=== PATIENT | female | born 1975 | race Caucasian/White ===

== ENCOUNTER 2016-12-04 09:18 | Emergency (ER) | payer MEDICARE, OTHER ==
[~2016-12-04] VITALS: Wt 57.5 kg
[~2016-12-04 09:18] MED LIST: LEVO125T PO
[2016-12-04] MEDS ORDERED: SOD CHLORIDE 0.9% 1,000 ML IV STA (09:35)
[2016-12-04] MEDS ORDERED: PARO20TA58 (09:56)
[2016-12-04] MEDS ORDERED: BISACODYL 10 MG SUPP PR ONE (10:00)
[2016-12-04] MEDS ORDERED: LACTULOSE 30ML CUP PO ONE (10:00)
[2016-12-04 10:25] LABS: BASOPHIL # 0.1 10^3/ul (0.0-0.1); EOSINOPHILS # 0.2 10^3/ul (0.0-0.5); EOSINOPHILS % 4.7 % (0.0-7.0); HEMATOCRIT 38.2 % (37.0-47.0); HEMOGLOBIN 12.2 g/dl (12.0-16.0); LYMPHOCYTES # 1.5 10^3/ul (0.8-2.9); LYMPHOCYTES % 28.8 % (15.0-51.0); MEAN CORPUSCULAR HEMOGLOBIN 28.9 pg (29.0-33.0); MEAN CORPUSCULAR HGB CONC 31.9 g/dl (32.0-37.0); MEAN CORPUSCULAR VOLUME 90.5 fl (82.0-101.0); MEAN PLATELET VOLUME 11.7 fl (7.4-10.4); MONOCYTE # 0.5 10^3/ul (0.3-0.9); MONOCYTES % 9.7 % (0.0-11.0); NEUTROPHILS % 55.6 % (39.0-77.0); PLATELET COUNT 192 10^3/UL (140-415); RED BLOOD COUNT 4.22 10^6/ul (4.20-5.40); RED CELL DISTRIBUTION WIDTH 12.3 % (11.5-14.5); WHITE BLOOD COUNT 5.1 10^3/ul (4.8-10.8)
[2016-12-04] MEDS ORDERED: LEVO88TA PO (10:32)
[2016-12-04 10:48] LABS: ALBUMIN 3.8 g/dl (3.3-4.9); ALBUMIN/GLOBULIN RATIO 1.46; BILIRUBIN,INDIRECT 0.5 mg/dl (0-1.1); BILIRUBIN,TOTAL 0.5 mg/dl (0.2-1.3); CALCIUM 8.6 mg/dl (8.4-10.2); CREATININE 0.72 mg/dl (0.44-1.00); POTASSIUM 4.3 mmol/L (3.5-5.1); TOTAL PROTEIN 6.4 g/dl (6.1-8.1)
[2016-12-04] MEDS ORDERED: NA PHOSPHATE/BIPHOS 133 ML ENEMA PR ONE (11:30)
[2016-12-04] MEDS ORDERED: MAGN296S40 PO (12:16)
[2016-12-04] MEDS ORDERED: DOCU-144 PO (12:16)
[2016-12-04] MEDS ORDERED: POLY17PO6 PO (12:16)
[2016-12-04] MEDS ORDERED: SENN-53 PO (12:16)
--- NOTE | 2016-12-04 12:39 | ERD ---
ER Documentation Chief Complaint Date/Time DATE: 12/04/16 TIME: 12:37 Chief Complaint CONSTIPATION AND NO BM FOR THE PAST 4 DAYS. NO N/V. RECENT WT LOSS HPI Patient is a 41-year-old female with anoxic brain injury who presents with constipation. She has had decreased fluid intake as well and the family is concerned she may be dehydrated. She was given a suppository and prune juice by the mother. The patient was trying to push to have a stool and almost passed out. The patient has no vomiting and no fevers. The patient did see her primary doctor Dr. Gonzalez within the last month for decreased sleep and was started on melatonin 1.5 weeks ago when her symptoms started. Upon review of old medical records this is the patient's sixth visit to the ER since 2007. ROS All systems reviewed and are negative except as per history of present illness. Medications Home Meds Active Scripts Magnesium Citrate* (Magnesium Citrate*) 296 Ml Solution, 296 ML PO ONCE, #1 BOTTLE Prov:MANISH ANDREWS MD 12/04/16 Polyethylene Glycol* (Miralax*) 17 Gm Powd.pack, 17 GM PO DAILY, #30 PACKET Prov:MANISH ANDREWS MD 12/04/16 Sennosides* (Senna Lax*) 8.6 Mg Tablet, 1 TAB PO DAILY, #30 TAB Prov:MANISH ANDREWS MD 12/04/16 Docusate Sodium* (Colace*) 100 Mg Capsule, 100 MG PO TID, #30 CAP Prov:MANISH ANDREWS MD 12/04/16 Reported Medications Levothyroxine Sodium* (Synthroid*) 88 Mcg Tablet, 88 MCG PO BEFORE BREAKFAST, # 30 TAB 12/04/16 Paroxetine Hcl* (Paxil*) 20 Mg Tablet 12/04/16 Discontinued Reported Medications Levothyroxine Sodium* (Synthroid*) 125 Mcg Tablet, 125 MCG PO DAILY, 0 Refills 01/14/10 Allergies Allergies: Coded Allergies: No Known Allergies (Verified Allergy, Mild, 12/04/16) PMhx/Soc History of Surgery: No Anesthesia Reaction: No Hx Neurological Disorder: Yes (anoxic brain injury) Hx Respiratory Disorders: No Hx Cardiac Disorders: No Hx Psychiatric Problems: No Hx Miscellaneous Medical Probl: Yes (thyroid) Hx Alcohol Use: No Hx Substance Use: No Hx Tobacco Use: No Smoking Status: Never smoker FmHx Family History: No diabetes Physical Exam Vitals Vital Signs Date Time Temp Pulse Resp B/P Pulse Ox O2 Delivery O2 Flow Rate FiO2 12/04/16 12:05 98.3 64 20 118/56 96 12/04/16 10:15 97.3 68 20 122/68 96 12/04/16 09:21 98.6 81 20 127/76 96 Physical Exam Const: No acute distress Head: Atraumatic Eyes: Normal Conjunctiva ENT: Normal External Ears, Nose and Mouth. Neck: Full range of motion..~ No meningismus. Resp: Clear to auscultation bilaterally Cardio: Regular rate and rhythm, no murmurs Abd: Soft, non tender, non distended. Normal bowel sounds Skin: No petechiae or rashes Back: No midline or flank tenderness Ext: No cyanosis, or edema Neur: Awake With anoxic brain injury at baseline Result Diagram: 12/04/1630 12/04/16 0930 Results 24 hrs Laboratory Tests Test 12/04/16 09:30 White Blood Count 5.110^3/ul Red Blood Count 4.2210^6/ul Hemoglobin 12.2g/dl Hematocrit 38.2% Mean Corpuscular Volume 90.5fl Mean Corpuscular Hemoglobin 28.9pg Mean Corpuscular Hemoglobin Concent 31.9g/dl Red Cell Distribution Width 12.3% Platelet Count 65633^3/UL Mean Platelet Volume 11.7fl Neutrophils % 55.6% Lymphocytes % 28.8% Monocytes % 9.7% Eosinophils % 4.7% Basophils % 1.0% Nucleated Red Blood Cells % 0.0/100WBC Neutrophils # (Manual) 2.810^3/ul Lymphocytes # 1.510^3/ul Monocytes # 0.510^3/ul Eosinophils # 0.210^3/ul Basophils # 0.110^3/ul Nucleated Red Blood Cells # 0.010^3/ul Sodium Level 139mmol/L Potassium Level 4.3mmol/L Chloride Level 105mmol/L Carbon Dioxide Level 27mmol/L Anion Gap 11 Blood Urea Nitrogen 10mg/dl Creatinine 0.72mg/dl Glucose Level 84mg/dl Calcium Level 8.6mg/dl Total Bilirubin 0.5mg/dl Direct Bilirubin 0.00mg/dl Indirect Bilirubin 0.5mg/dl Aspartate Amino Transf (AST/SGOT) 26IU/L Alanine Aminotransferase (ALT/SGPT) 35IU/L Alkaline Phosphatase 44IU/L Total Protein 6.4g/dl Albumin 3.8g/dl Globulin 2.60g/dl Albumin/Globulin Ratio 1.46 Lipase 64U/L Current Medications Medications (Trade) Dose Ordered Sig/Kamilah Route PRN Reason Start Time Stop Time Status Last Admin Dose Admin Sodium Chloride (NS) 1,000 ml @ 1,000 mls/hr Q1H STAT IV 12/04/16 09:35 12/04/16 10:34 DC 12/04/16 09:58 Lactulose (Enulose) 20 gm ONCE ONCE PO 12/04/16 10:00 12/04/16 10:01 DC 12/04/16 09:57 Bisacodyl (Dulcolax Supp) 10 mg ONCE ONCE IN 12/04/16 10:00 12/04/16 10:01 DC 12/04/16 09:57 Sodium Biphosphate/ Sodium Phosphate (Fleet Enema) 133 ml ONCE ONCE IN 12/04/16 11:30 12/04/16 11:31 DC 12/04/16 11:30 Procedures/MDM Patient is a 41-year-old female with anoxic brain injury who presents with constipation. The patient was given lactulose, Dulcolax suppository, and fleets enema. Laboratory studies are basically normal. The patient has good bowel sounds and no obvious signs of obstruction on exam. She has no pain on palpation. I believe the risks of doing a CT scan outweigh the benefits at this time given the risk of radiation. The patient will be discharged with prescription for Colace, senna, MiraLAX, and magnesium citrate. The patient went to follow-up with Dr. Gonzalez within 1 week for reevaluation. She can return sooner for any worsening symptoms. The family understands the plan and is okay for discharge at this time. Departure Diagnosis: Primary Impression: Constipation Constipation type: unspecified constipation type Qualified Code: K59.00 - Constipation, unspecified constipation type Condition: Fair Patient Instructions: Constipation (Adult) Referrals: HERIBERTO GONZALEZ MD (PCP) Additional Instructions: Call your primary care doctor TOMORROW for an appointment during the next 1 WEEK.Tell the escrow secretary that you were referred from this facility.See the doctor sooner or return here if your condition worsens before your appointment time. MANISH ANDREWS MD Dec 04, 2016 12:39
[2016-12-04 13:36] VITALS: BP 121/56; PULSE 69; RESP 20; TEMP 98.6
== END 2016-12-04 13:41 | disposition home or self-care (01) ==
LOC: E/R 09:18
DX: K59.00 Constipation, unspecified (principal); R40.2142 Coma scale, eyes open, spontaneous, at arrival to emergency department; R40.2252 Coma scale, best verbal response, oriented, at arrival to emergency department; R40.2362 Coma scale, best motor response, obeys commands, at arrival to emergency department
CPT/HCPCS: 36415; 80053; 83690; 85025; 99284; J7030

== ENCOUNTER 2016-12-06 11:47 | Emergency (ER) | payer MEDICARE, OTHER ==
[~2016-12-06] VITALS: Ht 165.1 cm; Wt 57.0 kg
[~2016-12-06 11:47] MED LIST changes: +DOCU-144 PO; +LEVO88TA PO; +MAGN296S40 PO; +PARO20TA58; +POLY17PO6 PO; +SENN-53 PO
[2016-12-06 11:53] VITALS: Ht 165.1 cm; Wt 57.0 kg
[2016-12-06 13:07] LABS: BASOPHILS % 0.8 % (0.0-2.0); EOSINOPHILS # 0.4 10^3/ul (0.0-0.5); EOSINOPHILS % 7.8 % (0.0-7.0); HEMOGLOBIN 12.2 g/dl (12.0-16.0); LYMPHOCYTES # 1.4 10^3/ul (0.8-2.9); MEAN CORPUSCULAR HEMOGLOBIN 29.8 pg (29.0-33.0); MEAN CORPUSCULAR VOLUME 90.5 fl (82.0-101.0); MEAN PLATELET VOLUME 11.8 fl (7.4-10.4); MONOCYTE # 0.4 10^3/ul (0.3-0.9); NEUTROPHILS % 53.2 % (39.0-77.0); PLATELET COUNT 191 10^3/UL (140-415); RED BLOOD COUNT 4.09 10^6/ul (4.20-5.40); RED CELL DISTRIBUTION WIDTH 12.4 % (11.5-14.5); WHITE BLOOD COUNT 4.9 10^3/ul (4.8-10.8)
[2016-12-06 13:21] LABS: CALCIUM 8.7 mg/dl (8.4-10.2); CREATININE 0.73 mg/dl (0.44-1.00); POTASSIUM 4.4 mmol/L (3.5-5.1)
[2016-12-06] MEDS ORDERED: PARO20TA58 PO (13:24)
--- NOTE | 2016-12-06 13:26 | ERA ---
ER Documentation Chief Complaint Date/Time DATE: 12/06/16 TIME: 13:22 Chief Complaint constipation no bm for 7 days sent by pmd HPI This is a 41-year-old female history of anoxic brain injury status post cardiac arrest at a young age approximate 15 years ago. Patient presents for constipation. She was seen here several days ago treated with an enema and multiple oral medications with a small bowel movement at that time. However since then she has not had a bowel movement. She denies any nausea or vomiting , mild abdominal cramping that is 2 out of 10. She states inability to have a bowel movement. Denies any [id number] medications, no narcotic pain medications. No abdominal surgical history. ROS All systems reviewed and are negative except as per history of present illness. Medications Home Meds Reported Medications Paroxetine Hcl* (Paxil*) 20 Mg Tablet, 20 MG PO DAILY, TAB 12/06/16 Levothyroxine Sodium* (Synthroid*) 88 Mcg Tablet, 88 MCG PO BEFORE BREAKFAST, # 30 TAB 12/04/16 Discontinued Reported Medications Paroxetine Hcl* (Paxil*) 20 Mg Tablet 12/04/16 Levothyroxine Sodium* (Synthroid*) 125 Mcg Tablet, 125 MCG PO DAILY, 0 Refills 01/14/10 Discontinued Scripts Magnesium Citrate* (Magnesium Citrate*) 296 Ml Solution, 296 ML PO ONCE, #1 BOTTLE Prov:MANISH ANDREWS MD 12/04/16 Polyethylene Glycol* (Miralax*) 17 Gm Powd.pack, 17 GM PO DAILY, #30 PACKET Prov:MANISH ANDREWS MD 12/04/16 Sennosides* (Senna Lax*) 8.6 Mg Tablet, 1 TAB PO DAILY, #30 TAB Prov:MANISH ANDREWS MD 12/04/16 Docusate Sodium* (Colace*) 100 Mg Capsule, 100 MG PO TID, #30 CAP Prov:MANISH ANDREWS MD 12/04/16 Allergies Allergies: Coded Allergies: No Known Allergies (Verified Allergy, Mild, 12/04/16) aripiprazole (Verified Adverse Reaction, Unknown, 12/06/16) PMhx/Soc History of Surgery: Yes (trach and gtube placement) Anesthesia Reaction: No Hx Neurological Disorder: Yes (anoxic brain injury) Hx Respiratory Disorders: No Hx Cardiac Disorders: Yes (cardiac arrest) Hx Psychiatric Problems: No Hx Miscellaneous Medical Probl: Yes (thyroid) Hx Alcohol Use: No Hx Substance Use: No Hx Tobacco Use: No Smoking Status: Never smoker FmHx Family History: No diabetes Physical Exam Vitals Vital Signs Date Time Temp Pulse Resp B/P Pulse Ox O2 Delivery O2 Flow Rate FiO2 12/06/16 11:53 97.8 79 18 103/64 98 Physical Exam General: Well developed, well nourished, no acute distress Head: Normocephalic, atraumatic Eyes: Pupils equally reactive, EOM intact ENT: Moist mucous membranes Neck: Supple, no lymphadenopathy Respiratory: Lungs clear bilaterally, no distress Cardiovascular: RRR, no murmurs, rubs, or gallops Abdominal: Soft, non-tender, non-distended, no peritoneal signs : Chaperoned exam with empty rectal vault MSK: No edema, no unilateral swelling, 5/5 strength Neurologic: Alert and oriented, moving all extremities, normal speech for patient, no focal weakness, no cerebellar signs Skin: No rash Psych: Normal mood Result Diagram: 12/06/16 1254 12/06/16 1254 Results 24 hrs Laboratory Tests Test 12/06/16 12:54 White Blood Count 4.910^3/ul Red Blood Count 4.0910^6/ul Hemoglobin 12.2g/dl Hematocrit 37.0% Mean Corpuscular Volume 90.5fl Mean Corpuscular Hemoglobin 29.8pg Mean Corpuscular Hemoglobin Concent 33.0g/dl Red Cell Distribution Width 12.4% Platelet Count 63087^3/UL Mean Platelet Volume 11.8fl Neutrophils % 53.2% Lymphocytes % 29.0% Monocytes % 9.0% Eosinophils % 7.8% Basophils % 0.8% Nucleated Red Blood Cells % 0.0/100WBC Neutrophils # (Manual) 2.610^3/ul Lymphocytes # 1.410^3/ul Monocytes # 0.410^3/ul Eosinophils # 0.410^3/ul Basophils # 0.010^3/ul Nucleated Red Blood Cells # 0.010^3/ul Sodium Level 140mmol/L Potassium Level 4.4mmol/L Chloride Level 106mmol/L Carbon Dioxide Level 29mmol/L Anion Gap 9 Blood Urea Nitrogen 6mg/dl Creatinine 0.73mg/dl Glucose Level 70mg/dl Calcium Level 8.7mg/dl Serum HCG, Qualitative NEGATIVE Procedures/MDM EKG, MONITORS, & DIAGNOSTIC IMAGING: CT abdomen and pelvis: No evidence of acute intra-abdominal process per radiology LAB INTERPRETATION: No significant leukocytosis MEDICAL DECISION MAKING: This patient presents with persistent constipation despite the use of oral and rectal medications. She has a benign abdominal exam. No vomiting. This is likely secondary to constipation however on digital rectal examination the patient had an empty rectal vault. Given the patient's repeat visits the emergency room concern for possible obstructive process intra-abdominal leak. CT imaging would be appropriate. The patient is otherwise well-appearing in the emergency department. ER COURSE: The patient continues to be well-appearing and asymptomatic. Laboratory testing and CT imaging showed no evidence of acute process. This is likely secondary to constipation of unclear etiology. Outpatient gastroenterology consultation would be reasonable, colonoscopy if symptoms do not improve. Continue with medications at home. Family and patient verbalized understanding I kept the patient and/or family informed of laboratory and diagnostic imaging results throughout the emergency room course. DISPOSITION PLAN: We discussed follow up with the patient's primary care doctor within 24 to 48 hours as needed. We also discussed return to the emergency room for worsening symptoms or worsening condition. Outpatient referral: Gastroenterology Discharge Medications: Continue home medications including MiraLAX, senna, Colace Departure Diagnosis: Primary Impression: Constipation Qualified Code: K59.00 - Constipation, unspecified constipation type Condition: GERSON Bustos MD Dec 06, 2016 13:26
--- NOTE | 2016-12-06 14:13 | RADRPT ---
PROCEDURE: CT Abdomen and pelvis without contrast. CLINICAL INDICATION: Constipation for 4 days TECHNIQUE: CT scan of the abdomen and pelvis without contrast was performed on a multidetector hig h-resolution CT scan. . Coronal and sagittal reformatted images were obtained from the axial [facility] e images. Standard CT scan of the abdomen pelvis without contrast protocols were performed. The total exam CTDI equals 6.32 mGy and the total exam DLP equals 382.67 mGy-cm. One or more of the following dose reduction techniques were used: - Automated exposure control. - Adjustment of the mA and/or kV according to patient size. Use of iterative reconstruction technique. COMPARISON: None. FINDINGS: There are numerous rounded radiodensities within the gastric lumen consistent with ingested pills. T he stomach is otherwise unremarkable. The small and large bowel are unremarkable. The appendix is un remarkable. There is no evidence of bowel obstruction. There is trace fluid in the right lower pelvis without other abdominal free fluid. Negative for intr a-abdominal abscess, free air or lymphadenopathy. The kidneys are normal in size without calcified renal calculi hydronephrosis or intra renal masses bilaterally. The urinary bladder is unremarkable. The uterus is anteverted anteflexed but otherwise unremarkable. No definite adnexal masses. The aorta is unremarkable. Mild dependent lung atelectasis at the lung bases otherwise unremarkable. The osseous structures are unremarkable without acute osseous findings or osteoblastic/osteolytic l esions. Sclerotic density involving the right ilium and left sacrum are consistent with bone islands . The abdominal and pelvic caldera are unremarkable. IMPRESSION: 1. No evidence of gastrointestinal disease. No evidence of bowel obstruction. Note there are kateryna us radiodensities within the gastric lumen consistent with ingested pills and recommend clinical cor relation. 2. Trace fluid in the right lower pelvis without abdominal abscess free air or lymphadenopathy. 3. No evidence of calcified urinary calculi or obstructive uropathy. RPTAT:AAJJ Physician Carine Date Time Electronically viewed and signed by Physician Carine on 12/06/2016 14:13 BM/
[2016-12-06 14:59] VITALS: BP 109/67; PULSE 75; RESP 18; TEMP 97.8
== END 2016-12-06 15:00 | disposition home or self-care (01) ==
LOC: E/R 11:47
DX: K59.00 Constipation, unspecified (principal)
CPT/HCPCS: 36415; 74176; 80048; 84703; 85025

== ENCOUNTER 2018-01-09 10:03 | Emergency (ER) | END 2018-01-09 12:26 | disposition home or self-care (01) ==